=== PATIENT | male | born 1990 | race Caucasian/White ===

== ENCOUNTER 2025-03-06 21:19 | Emergency (ER) | payer OTHER ==
[2025-03-06 21:27] VITALS: BP 116/81; PULSE 96; RESP 18; TEMP 98.1; BMI 31.0
[2025-03-06] MEDS ORDERED: IBUPROFEN 600 MG TABLET (FP) PO ONE (22:23)
[2025-03-06] MEDS: IBUPROFEN 600 MG TABLET (FP) PO ONE (22:26)
== END 2025-03-06 23:30 | disposition home or self-care (01) ==
LOC: JERFT 21:19
DX: H66.92 Otitis media, unspecified, left ear (principal); J02.9 Acute pharyngitis, unspecified; R09.81 Nasal congestion; H92.02 Otalgia, left ear
CPT/HCPCS: 87637-QW; 87651; 99283-25